=== PATIENT | male | born 1955 | race African-American/Black ===

== ENCOUNTER → 2024-04-15 | Day surgery (SDC) | payer MEDICARE ==
[2024-04-14 13:05] LABS: BASOPHILS % 0.4 % (0.0-1.0); EOSINOPHILS # (AUTO) 0.2 (0.0-0.4); EOSINOPHILS % 3.9 % (0.0-6.0); HEMATOCRIT 47.4 % (38.2-49.6); HEMOGLOBIN 15.2 g/dL (14.0-18.0); LYMPHOCYTES # (AUTO) 2.9 (1.0-3.2); LYMPHOCYTES % 53.2 % (18.0-39.1); MEAN CORPUSCULAR HGB CONC 32.1 g/dL (31-35); MEAN CORPUSCULAR VOLUME 96.7 fL (81-99); MONOCYTES # (AUTO) 0.5 (0.2-0.8); MONOCYTES % 8.8 % (4.4-11.3); NEUTROPHILS # (AUTO) 1.8 (2.1-6.9); NEUTROPHILS % 33.3 % (38.7-80.0); PLATELET COUNT 229 x10e3/uL (140-360); WHITE BLOOD COUNT 5.36 x10e3/uL (4.8-10.8)
[~2024-04-15] MED LIST: AMLODIPINE BESY10 MG PO; AMLODIPINE-BEN1 EAC5 PO; BACLOFEN10 MG PO; DEXILANT30 MG PO; IPRAT-ALBUT 0.5-3 ML IH; LIDOCAINE HCL 2% LOCAL INJ 5 ML SDV VIAL INJ ONE; LIDOCAINE PAIN1 EACH TOP; PROAIR DIGIHAL90 MCG IH; PROPOFOL IV EMULSION 10 MG/ML 20 ML VIAL ONE; TRELEGY ELLIPT1 EAC1 IH
[2024-04-15] MEDS: LACTATED RINGER'S 1,000 ML ONE ×2 (13:39→13:40)
[2024-04-15 15:39] VITALS: BP 126/88; PULSE 76; RESP 16; O2SAT 98
== END | disposition home or self-care (01) ==
LOC: OR 12:44
PROVIDERS: ATTEND Internal Medicine Gastroenterology
DX: K21.9 Gastro-esophageal reflux disease without esophagitis (principal); D12.2 Benign neoplasm of ascending colon; D12.3 Benign neoplasm of transverse colon; D12.4 Benign neoplasm of descending colon; K29.70 Gastritis, unspecified, without bleeding; K31.A12 Gastric intestinal metaplasia without dysplasia, involving the body (corpus); K31.89 Other diseases of stomach and duodenum; R13.10 Dysphagia, unspecified; K44.9 Diaphragmatic hernia without obstruction or gangrene; K64.8 Other hemorrhoids; I10 Essential (primary) hypertension; J44.9 Chronic obstructive pulmonary disease, unspecified; Z01.810 Encounter for preprocedural cardiovascular examination; Z01.812 Encounter for preprocedural laboratory examination; Z99.81 Dependence on supplemental oxygen; Z79.899 Other long term (current) drug therapy
CPT/HCPCS: 36415; 43239; 45385; 85025; 93005; J2001; J2704; J7121